=== PATIENT | male | born 1980 | race African-American/Black ===

== ENCOUNTER 2024-12-01 12:44 | Emergency (ER) | payer MEDICAID ==
[~2024-12-01] VITALS: Ht 175.3 cm; Wt 83.0 kg
[~2024-12-01 12:44] MED LIST: ALBU90AE INH; AMLO5TAB88 PO; BENZ1TAB79 PO; CALC500T6 PO; FAMO20TA8 PO; HALO5TAB2 PO; LOSA25TA26 PO; MECL-299 PO; OLAN10TA72 PO; OMEP20TA23 PO
[2024-12-01 12:45] VITALS: O2SAT 99
[2024-12-01 13:08] LABS: CLARITY URINE CLEAR (CLEAR); COLOR URINE YELLOW (YELLOW); GLUCOSE URINE NEGATIVE (NEGATIVE); KETONES URINE TRACE (NEGATIVE); LEUKOCYTE ESTERASE URINE NEGATIVE (NEGATIVE); NITRITE URINE NEGATIVE (NEGATIVE); OCCULT BLOOD URINE NEGATIVE (NEGATIVE); PH URINE 6.5 (4.5-8.0); PROTEIN URINE NEGATIVE (NEGATIVE); SPECIFIC GRAVITY URINE 1.025 (1.005-1.030)
[2024-12-01 13:09] LABS: BASOPHILS % 0.3 % (0.0-2.0); EOSINOPHILS % 1.3 % (0.0-5.0); HEMATOCRIT. 36.9 % (42.0-52.0); HEMOGLOBIN. 11.9 g/dL (14.0-18.0); LYMPHOCYTES % 20.5 % (20.0-50.0); MEAN CORPUSCULAR HEMOGLOBIN 29.1 pg (28.0-32.0); MEAN CORPUSCULAR HGB CONC 32.3 g/dL (31.0-37.0); MEAN CORPUSCULAR VOLUME 90.2 fL (80.0-94.0); MEAN PLATELET VOLUME 8.9 fl (7.4-10.4); MONOCYTES % 6.4 % (2.0-8.0); NEUTROPHILS % 71.5 % (40.0-76.0); PLATELET 271 x1000/uL (130-400); RED BLOOD CELL COUNT 4.09 mill/uL (4.7-6.1); RED CELL DISTRIBUTION WIDTH 17.2 % (11.6-14.6); WHITE BLOOD COUNT 10.2 x1000/uL (4.5-11.0)
[2024-12-01 13:15] LABS: CARBON DIOXIDE 25 mEq/L (21-32); CHLORIDE 105 mEq/L (98-107); POTASSIUM 4.2 mEq/L (3.5-5.1); SODIUM 139 mEq/L (136-145)
[2024-12-01 13:16] LABS: CALCIUM 9.8 mg/dL (8.7-10.4)
[2024-12-01 13:21] LABS: CREATININE 1.3 mg/dL (0.6-1.3); GLUCOSE 110 mg/dL (70-105); UREA NITROGEN BLOOD 12 mg/dL (9-23)
[2024-12-01] MEDS: MAGNESIUM/ALUMINUM HYDROXIDE/SIMETHICONE 30ML UDC PO ONE (13:49)
[2024-12-01] MEDS: FAMOTIDINE 20MG TABLET PO ONE (13:49)
[2024-12-01 14:26] LABS: ALANINE AMINOTRANSFERASE 29 IU/L (10-49); ALBUMIN 4.1 g/dL (3.2-4.8); ASPARTATE AMINOTRANSFERASE 21 IU/L (<34); BILIRUBIN DIRECT < 0.1 mg/dL (<=3.0); BILIRUBIN TOTAL 0.2 mg/dL (0.1-1.0); PROTEIN TOTAL 7.3 g/dL (6.0-8.3)
[2024-12-01 15:24] VITALS: BP 147/89; PULSE 89; RESP 16; TEMP 36.6; O2SAT 99
== END 2024-12-01 15:26 | disposition home or self-care (01) ==
LOC: ER 12:44
DX: R10.13 Epigastric pain (principal); I10 Essential (primary) hypertension; Z79.899 Other long term (current) drug therapy; Z88.5 Allergy status to narcotic agent
CPT/HCPCS: 36415; 80048; 80076; 81003; 85025; 99283